=== PATIENT | female | born 2000 | race Caucasian/White ===

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

== ENCOUNTER 2021-07-16 15:37 | Outpatient (CLI) | payer BC ==
[2021-07-19 15:26] LABS: NIL 0.02 IU/mL
== END 2021-07-16 23:59 | disposition home or self-care (01) ==
LOC: LAB.WCP 15:37
PROVIDERS: ATTEND Physician Assistant Medical
DX: Z71.89 Other specified counseling (principal)
CPT/HCPCS: 36415; 86317; 86480

== ENCOUNTER 2021-08-31 08:00 | Outpatient (CLI) | payer BC | END 2021-08-31 23:59 | disposition home or self-care (01) | LOC: LAB.WCP 08:00 | PROVIDERS: ATTEND Physician Assistant Medical | DX: Z01.84 Encounter for antibody response examination (principal) | CPT/HCPCS: 86317 ==

== ENCOUNTER 2022-02-25 11:07 | Outpatient (CLI) | payer BC | END 2022-02-25 11:08 | disposition home or self-care (01) | LOC: LAB.N 11:07 | PROVIDERS: ATTEND Physician Assistant Medical | DX: Z71.89 Other specified counseling (principal) | CPT/HCPCS: 36415; 86317 ==

== ENCOUNTER 2022-05-19 08:37 | Outpatient (CLI) | payer BC | END 2022-05-19 08:38 | disposition home or self-care (01) | LOC: LAB.N 08:37 | PROVIDERS: ATTEND Physician Assistant Medical | DX: Z02.1 Encounter for pre-employment examination (principal) | CPT/HCPCS: 81599 ==

== ENCOUNTER 2022-05-31 13:34 | Outpatient (CLI) | payer BC | END 2022-05-31 13:35 | disposition home or self-care (01) | LOC: LAB.N 13:34 | PROVIDERS: ATTEND Physician Assistant Medical | DX: Z02.1 Encounter for pre-employment examination (principal) | CPT/HCPCS: 81599; 86480 ==

== ENCOUNTER 2023-05-03 09:38 | Outpatient (CLI) | payer BC | END 2023-05-03 09:39 | disposition home or self-care (01) | LOC: LAB.N 09:38 | PROVIDERS: ATTEND Family Medicine | DX: Z11.1 Encounter for screening for respiratory tuberculosis (principal) | CPT/HCPCS: 81599; 86480 ==

== ENCOUNTER 2023-12-22 07:55 | Outpatient (CLI) | payer BC | END 2023-12-22 07:56 | disposition home or self-care (01) | LOC: LAB.N 07:55 | PROVIDERS: ATTEND Physician Assistant Medical | DX: Z11.1 Encounter for screening for respiratory tuberculosis (principal) | CPT/HCPCS: 81599; 86480 ==